=== PATIENT | male | born 1980 | race Caucasian/White ===

== ENCOUNTER 2017-09-04 12:28 | Emergency (ER) | payer SELFPAY ==
[~2017-09-04] VITALS: Ht 182.9 cm; Wt 104.3 kg
[2017-09-04] MEDS ORDERED: DEXAMETHASONE 10 MG/ML (DECADRON) 1 ML VIAL ONE (13:18)
--- NOTE | 2017-09-04 13:27 | ED Neck-Back Pain/Injury ---
General Chief Complaint: Head/Cervical Problems Stated Complaint: NECK STIFFNESS AND PAIN Nursing Triage Note: AMBULATED TO ROOM 09 WITH COMPLAINTS OF NECK PAIN/STIFFNESS FOR ONE WEEK. STATES HE WOKE UP WITH THE PAIN. STATES HE HAS TAKEN ALL KINDS OF OTC MEDS ALONG WITH A FRIENDS MUSCLE RELAXER WHICH DID NOT HELP. Nursing Sepsis Screen: No Definite Risk Source of Information: Patient Exam Limitations: No Limitations History of Present Illness Time Seen by Provider: 13:13 Initial Comments Patient presents to ER by private conveyance with chief complaint that for one week now he's having a very severe muscle spasms in his right neck and shoulder that was not precipitated by any trauma or history of surgical intervention. He' s never had this before. He has not had any cold sinus or sick contacts. He's had no fevers, chills, cough, rash. Patient feels like his next being pulled over to the right side. He has used everything [id number] to include acetaminophen and Aleve with no relief. He says he was given a muscle relaxant by a friend and took it 1 but this did not make a big difference and did not make it go away. He has tried deep tissue massage with only marginal relief. Heat helped some. The pain radiates down his right arm and back. Allergies and Home Medications Allergies Coded Allergies: No Known Drug Allergies (Unverified , 09/04/17) Constitutional: No chills, No diaphoresis EENTM: No ear discharge, No ear pain Respiratory: No cough, No short of breath Cardiovascular: No chest pain, No palpitations Gastrointestinal: No abdominal pain, No constipation, No nausea Genitourinary: No discharge, No dysuria Musculoskeletal: No back pain, No joint swelling, muscle pain, muscle stiffness (right shoulder muscle spasms), neck pain (right-sided) Psychiatric/Neurological: Denies Headache, Denies Numbness, Denies Paresthesia Past [id number] Hx Patient Social History Alcohol Use: Occasionally Uses Recreational Drug Use: Yes (POT) Smoking Status: Current Everyday Smoker Type Used: Cigarettes (0.5 ppd) Recent Foreign Travel: No Contact w/Someone Who Travel: No Recent Infectious Disease Expo: No Surgeries History of Surgeries: Yes Surgeries: Orthopedic Cardiovascular History of Cardiac Disorders: No Neurological History of Neurological Disord: No Genitourinary History of Genitourinary Disor: No Gastrointestinal History of Gastrointestinal Di: No Musculoskeletal History of Musculoskeletal Dis: No Endocrine History of Endocrine Disorders: No Cancer History of Cancer: No Psychosocial History of Psychiatric Problem: No Integumentary History of Skin or Integumenta: No Physical Exam Vital Signs Vital Sign - Last 12Hours 09/04/17 12:47 Temp 98.0 Pulse 106 Resp 18 B/P (MAP) 134/111 Pulse Ox 98 Capillary Refill : Less Than 3 Seconds General Appearance: WD/WN, Mild Distress HEENT: PERRL/EOMI, TMs Normal, Normal ENT Inspection, Pharynx Normal Neck: Full Range of Motion (but painful on active motion.), Normal Inspection, Non Tender, Supple Cardiovascular: Regular Rate, Rhythm, No Edema, No Gallop Respiratory: Chest Non Tender, Lungs Clear, Normal Breath Sounds Peripheral Pulses: 2+ Radial Pulses (R), 2+ Radial Pulses (L) Gastrointestinal: Normal Bowel Sounds, Non Tender, Soft Back: Normal Inspection, No Vertebral Tenderness Extremity: Normal Capillary Refill, Normal Inspection, Normal Range of Motion, Other (right trapezius tender to palpation.) Neurologic/Psychiatric: Alert, Oriented x3 Skin: Normal Color, Warm/Dry Progress/Results/Core Measures Results/Orders My Orders Orders - OMARI LLOYD Dexamethasone Injection (Decadron Inject (09/04/17 13:30) Orphenadrine Injection (Norflex Injectio (09/04/17 13:30) Ketorolac Injection (Toradol Injection) (09/04/17 13:30) Vital Signs/I&O Vital Sign - Last 12Hours 09/04/17 12:47 Temp 98.0 Pulse 106 Resp 18 B/P (MAP) 134/111 Pulse Ox 98 Blood Pressure Mean: 119 Departure Impression Impression: Primary Impression: Torticollis, spasmodic Disposition: 01 HOME, SELF-CARE Condition: Improved Departure-Patient Inst. Decision time for Depature: 13:25 Referrals: NO,LOCAL PHYSICIAN (PCP/Family) Primary Care Physician Patient Instructions: Torticollis (DC) Add. Discharge Instructions: Continue to do range of motion exercises to stay limber. Use Tylenol 1000 mg every 8 hours as needed along with Aleve 2 capsules twice a day until your pain has gone away. The steroid shot should last for about for 5 days. Tonight if you 're still having muscle spasms you can take the cyclobenzaprine1 tablet every 8 hours to relax your muscles. Use heat alternated with ice or icy hot/Biofreeze if you do not have these items available to you. Plan on taking tomorrow off. If you're not seeing improvement in 1-2 weeks you should follow-up with either your primary care physician or urgent care. All discharge instructions reviewed with patient and/or family. Voiced understanding. Scripts Cyclobenzaprine HCl (Cyclobenzaprine HCl) 10 Mg Tablet 10 MG PO Q8H Y for SPASMS, #20 TAB 0 Refills Prov: OMARI LLOYD 09/04/17 Work/School Note: Work Release Form Date Seen in the Emergency Department: Sep 04, 2017 Return to Work: Sep 06, 2017 Restrictions: No Restrictions OMARI LLOYD Sep 04, 2017 13:27
[2017-09-04] MEDS ORDERED: CYCL10TA9 PO (13:29)
[2017-09-04] MEDS ORDERED: DEXAMETHASONE 4 MG/ML SDV (DECADRON) IM ONE (13:30)
[2017-09-04] MEDS ORDERED: DEXAMETHASONE 10 MG/ML (DECADRON) 1 ML VIAL IM ONE (13:30)
[2017-09-04] MEDS ORDERED: ORPHENADRINE 60 MG/2 ML (NORFLEX) AMP IM ONE (13:30)
[2017-09-04] MEDS ORDERED: KETOROLAC 30 MG/ML VIAL IM ONE (13:30)
[2017-09-04 13:55] VITALS: BP 133/94
== END 2017-09-04 13:55 | disposition home or self-care (01) ==
LOC: EDUNIT# 12:28 → ER 12:30
DX: G24.3 Spasmodic torticollis (principal); F17.210 Nicotine dependence, cigarettes, uncomplicated
CPT/HCPCS: 96372; 99284